=== PATIENT | male | born 1975 | race Two or more races ===

== ENCOUNTER 2016-07-05 09:58 | Emergency (ER) | payer OTHER ==
[2016-07-05 10:02] VITALS: BP 155/90; PULSE 84; TEMP 97.9; BMI 31.3
[2016-07-05 10:27] LABS: URINE APPEARANCE SLCLOUDY; URINE BILIRUBIN NEGATIVE (NEGATIVE); URINE COLOR STRAW; URINE GLUCOSE (UA) NEGATIVE (NEGATIVE); URINE KETONE NEGATIVE (NEGATIVE); URINE LEUK ESTERASE NEGATIVE (NEGATIVE); URINE NITRITE NEGATIVE (NEGATIVE); URINE PROTEIN NEGATIVE (NEGATIVE); URINE UROBILINOGEN NEGATIVE E.U./dl (0.2-1.0)
[2016-07-05 10:39] LABS: URINE BLOOD 3+ (NEGATIVE)
[2016-07-05 10:55] LABS: URINE RBC 2260 /hpf (0-3)
--- NOTE | 2016-07-05 11:11 | PDOC ---
History of Present Illness - General Chief Complaint: Urinary Problem Stated Complaint: BLOOD IN URINE Time Seen by Provider: 07/05/16 10:31 History Source: Patient Exam Limitations: No Limitations - History of Present Illness Travel History: No Initial Comments: 07/05/16 11:06 40 yr male with c/o blood in urine for one week. Pt has no urgency or frequency no burning. Pt has history of HTN, has seen his PMD in the past one month ago for same. PMD . Timing/Duration: reports: intermittent (for 2 months on and off) Abdominal Pain Onset Location: denies: RUQ, LUQ, RLQ, LLQ, epigastric, periumbilical, suprapubic, generalized abdomen, flank, unknown, other Pain Radiation: reports: no radiation Activities at Onset: reports: none Past History - Past Medical History Allergies/Adverse Reactions: Allergies Allergy/AdvReac Type Severity Reaction Status Date / Time No Known Allergies Allergy Verified 07/05/16 10:02 Home Medications: Ambulatory Orders Amlodipine Bes/Olmesartan Med [Rachel 10-20 mg Tablet] 1 each PO DAILY 05/09/14 Hydrochlorothiazide [Hctz -] 12.5 mg PO DAILY 05/09/14 HTN: Yes Suicide Attempt (Hx): No - Immunization History Immunization Up to Date: No - Psycho/Social/Smoking Cessation Hx Anxiety: No Suicidal Ideation: No Smoking Status: No Smoking History: Never smoked Have you smoked in the past 12 months: No Number of Cigarettes Smoked Daily: 0 Information on smoking cessation initiated: No Hx Alcohol Use: No Drug/Substance Use Hx: No Substance Use Type: None Abd/GI Specific PMHX - Complaint Specific PMHX Colitis: No Diverticulitis: No Gall Bladder Disease: No GERD: No Hepatitis: No Irritable Bowel Synd (IBS): No Pancreatitis: No GI Ulcer Disease: No Review of Systems - Review of Systems Able to Perform ROS?: Yes Is the patient limited Bengali proficient: No Constitutional: No: Symptoms Reported HEENTM: No: Symptoms Reported Respiratory: No: Symptoms reported Cardiac (ROS): No: Symptoms Reported ABD/GI: No: Symptoms Reported : Yes: Symptoms Reported Musculoskeletal: No: See HPI Integumentary: No: Symptoms Reported Neurological: No: Symptoms reported *Physical Exam - Vital Signs Last Vital Signs Temp Pulse Resp BP Pulse Ox 97.9 F 84 18 155/90 97 07/05/16 10:00 07/05/16 10:00 07/05/16 10:00 07/05/16 10:00 07/05/16 10:00 - Physical Exam General Appearance: Yes: Nourished, Appropriately Dressed HEENT: positive: EOMI, RICH, Normal ENT Inspection, TMs Normal, Pharynx Normal Neck: positive: Supple. negative: Tender Respiratory/Chest: positive: Lungs Clear, Normal Breath Sounds Cardiovascular: positive: Regular Rhythm, Regular Rate Gastrointestinal/Abdominal: positive: Normal Bowel Sounds, Soft. negative: Tender Male Genitalia: positive: normal genitalia Musculoskeletal: positive: CVA Tenderness (L) Extremity: positive: Normal Capillary Refill, Normal Inspection, Normal Range of Motion Integumentary: positive: Normal Color, Dry, Warm Neurologic: positive: Fully Oriented, Alert, Normal Mood/Affect, Normal Response , Motor Strength 06/15 ED Treatment Course - LABORATORY CBC & Chemistry Diagram: 07/05/16 11:04 07/05/16 11:04 - ADDITIONAL ORDERS Additional order review: Laboratory Results 07/05/16 10:18 Urine Color Straw Urine Appearance Slcloudy Urine pH 7.0 Urine Protein Negative Urine Glucose (UA) Negative Urine Ketones Negative Urine Blood 3+ H Urine Nitrite Negative Urine Bilirubin Negative Urine Urobilinogen Negative Ur Leukocyte Esterase Negative - RADIOLOGY Radiology Studies Ordered: Category Date Time Status KIDNEY / RENAL US [US] Stat Ultrasound 07/05/16 11:04 Ordered Medical Decision Making - Medical Decision Making 07/05/16 11:09 cc: hematuria for one week states he had this in the past was told to drink pleanty of water. pt has no abd pain no back pain no urinary urgency or frequency no penile discharge 07/05/16 12:46 07/05/16 15:15 I have given the dc instructions verbally to the patient to follow with urology and his PMD next week that the continuation of the workup must be completed by the urologist or PMD to r/o other etiologies. Pt understands the importance of this continued care. all questions asked and answered at discharge. pt has been given a copy of the labs and ultrasound. *DC/Admit/Observation/Transfer Diagnosis at time of Disposition: Hematuria - Discharge Dispostion Disposition: HOME Condition at time of disposition: Good - Referrals Referrals: Oscar Schmidt MD [Primary Care Provider] - Abilio Casillas MD [Staff Physician] - - Patient Instructions Additional Instructions: follow with the urologist , please call today to set up appointment for the next week , if you are unable to see him PLEASE see your primary care doctor to discuss the results bring copies of the labs and the ultrasound report with you return to ER if any worsening symptoms
[2016-07-05 11:46] LABS: MCH 30.9 pg (25.7-33.7); MCHC 34.8 g/dl (32.0-35.9); MEAN CELL VOLUME 88.7 fl (80-96); MEAN PLT VOLUME 9.2 fl (7.5-11.1); PLATELET COUNT 279 K/MM3 (134-434); RDW 12.7 % (11.9-15.9); WHITE BLOOD COUNT 9.4 K/mm3 (4.0-10.0)
[2016-07-05 11:54] LABS: ALBUMIN 3.8 g/dl (3.4-5.0); ALK PHOS 101 U/L (45-117); ANION GAP 10 (8-16); BILIRUBIN,TOTAL 0.5 mg/dL (0.2-1.0); CALCIUM 8.8 mg/dL (8.5-10.1); CO2 27 mmol/L (21-32); COCKROFT - GAULT 137.19; CREATININE 0.9 mg/dL (0.7-1.3); GLUCOSE,RANDOM 84 mg/dL (74-106); SGPT/ALT 55 U/L (12-78); TOT PROT 7.5 g/dl (6.4-8.2)
[2016-07-05 11:58] LABS: SGOT/AST 47 U/L (15-37)
== END 2016-07-05 14:03 | disposition home or self-care (01) ==
LOC: JERFT 09:58
DX: R31.9 Hematuria, unspecified (principal); I10 Essential (primary) hypertension
CPT/HCPCS: 36415; 76775-TC; 80053; 81003; 81015; 85027; 87086; 99281-25

== ENCOUNTER 2016-07-09 07:31 | Emergency (ER) | payer OTHER ==
[2016-07-09 07:37] VITALS: BMI 31.3
[2016-07-09] MEDS ORDERED: SODIUM CHLORIDE 1,000 ML IV STA (07:53)
[2016-07-09] MEDS ORDERED: KETOROLAC TROMETHAMINE 30 MG/1 ML VIAL IVPUSH ONE (07:54)
--- NOTE | 2016-07-09 08:26 | PDOC ---
History of Present Illness - General Chief Complaint: Pain Stated Complaint: SIDE PAIN Time Seen by Provider: 07/09/16 07:46 History Source: Patient Exam Limitations: No Limitations - History of Present Illness Initial Comments: 07/09/16 08:12 This pt is a 40 yo M with a history of HTN who presents to the ER with a complaint of left flank pain Pt states that he was seen in the ER 4 days ago due to hematuria At that time, pt denied pain He was discharged to home, no abx or pain medications Pt states he began having severe flank pain No fevers or chills Pain is described as crampy, 9/10, located in the left flank, no pain in the abdomen No alleviating factors PMH: HTN PSH: Right wrist surgery, Right thumb surgery Meds: Amlodipine 10mg daily, HCTZ 12.5 ALL: NKDA Social: denies alcohol, drugs cigarettes GENERAL/CONSTITUTIONAL: No: fever, chills, weakness, loss of appetite. GASTROINTESTINAL: No: nausea, vomiting, diarrhea, abdominal pain GENITOURINARY: Yes: left flank pain No: dysuria, hematuria, frequency, urgency MUSCULOSKELETAL: No: back pain, neck pain, joint pain, muscle swelling or pain SKIN: No: lesions, pallor, rash or easy bruising. NEUROLOGIC: No: headache, vertigo, paresthesias, weakness ENDOCRINE: No: unexplained weight gain or loss HEMATOLOGIC/LYMPHATIC: No: anemia, easy bleeding, swelling nodes. GENERAL: The patient is in no acute distress. HEAD: Normal with no signs of trauma. EYES: PERRLA, EOMI, sclera anicteric, conjunctiva clear. ENT: Ears normal, nares patent, oropharynx clear without exudates. Moist mucous membranes. NECK: Normal range of motion, supple without lymphadenopathy, JVD, or masses. LUNGS: Breath sounds equal, clear to auscultation bilaterally. No wheezes, and no crackles. HEART: Regular rate and rhythm, normal S1 and S2 without murmur, rub or gallop. ABDOMEN: (+) Left CVA tenderness, Abdomen Soft, nontender, normoactive bowel sounds. No guarding, no rebound. EXTREMITIES: Normal range of motion, no edema. No clubbing or cyanosis. No erythema, or tenderness. NEUROLOGICAL: Cranial nerves II through XII grossly intact. Normal speech. No focal neurological deficits. MUSCULOSKELETAL: Back non-tender to palpation, no CVA tenderness SKIN: Warm, Dry, normal turgor, no rashes or lesions noted. Past History - Past Medical History Allergies/Adverse Reactions: Allergies Allergy/AdvReac Type Severity Reaction Status Date / Time No Known Allergies Allergy Verified 07/09/16 07:34 Home Medications: Ambulatory Orders Hydrochlorothiazide [Hctz -] 12.5 mg PO DAILY 05/09/14 Amlodipine Besylate [Norvasc -] 10 mg PO DAILY 07/09/16 Naproxen [Naprosyn -] 500 mg PO BID PRN #14 tablet 07/09/16 Oxycodone HCl/Acetaminophen [Percocet 5-325 mg Tablet -] 1 tab PO Q6H PRN #12 tablet MDD 4 07/09/16 Tamsulosin HCl [Flomax] 0.4 mg PO HS #10 capsule 07/09/16 HTN: Yes Kidney Stones: Yes Suicide Attempt (Hx): No - Immunization History Immunization Up to Date: No - Psycho/Social/Smoking Cessation Hx Anxiety: No Suicidal Ideation: No Smoking Status: No Smoking History: Never smoked Have you smoked in the past 12 months: No Number of Cigarettes Smoked Daily: 0 Information on smoking cessation initiated: No Hx Alcohol Use: No Drug/Substance Use Hx: No Substance Use Type: None *Physical Exam - Vital Signs Last Vital Signs Temp Pulse Resp BP Pulse Ox 97.9 F 69 18 129/72 100 07/09/16 07:34 07/09/16 07:34 07/09/16 07:34 07/09/16 07:34 07/09/16 07:34 ED Treatment Course - LABORATORY CBC & Chemistry Diagram: 07/09/16 08:30 07/09/16 08:30 Medical Decision Making - Medical Decision Making 07/09/16 08:26 will do labs Will give Toradol will give IVF Will do CT Will re assess 07/09/16 10:28 Laboratory Tests 07/05/16 07/05/16 07/09/16 11:04 11:04 08:30 Hgb 15.8 15.2 Hct 45.3 44.6 BUN 19 H Creatinine 0.9 D Urine RBC Urine WBC 07/09/16 07/09/16 08:30 09:50 Hgb Hct BUN 16 Creatinine 1.2 D Urine RBC 62 Urine WBC 1 07/09/16 11:00 Laboratory Tests 04/15/12 08/30/12 05/09/14 10:50 08:45 20:30 Creatinine 1.5 H D 1.1 D 1.4 H D 07/05/16 07/09/16 11:04 08:30 Creatinine 0.[address]: 4-5 mm UVJ stone 07/09/16 11:54 Pt states pain is controlled Will discharge to home Pt asked to follow up with Urology Return to the ER for increased pain, fevers, any other concerns or complaint Clinical impression: kidney stone 07/10/16 20:47 *DC/Admit/Observation/Transfer Diagnosis at time of Disposition: Kidney stone - Discharge Dispostion Disposition: HOME Condition at time of disposition: Stable Admit: No - Prescriptions Prescriptions: Tamsulosin HCl [Flomax] 0.4 mg PO HS #10 capsule Naproxen [Naprosyn -] 500 mg PO BID PRN #14 tablet PRN Reason: Pain Oxycodone HCl/Acetaminophen [Percocet 5-325 mg Tablet -] 1 tab PO Q6H PRN #12 tablet MDD 4 PRN Reason: Severe Pain - Referrals Referrals: Oscar Schmidt MD [Primary Care Provider] - - Patient Instructions Printed Discharge Instructions: DI for Kidney Stones Additional Instructions: Mr. Garcia Thank you for coming back to the ER Please return to the ER for increased pain, inability to tolerate foods, liquids or medicines Please monitor yourself for fevers or chills you must follow up with the Urologist within 2-3 days you can also follow up with your primary care physician within 1 week - Post Discharge Activity Work/School Note: Back to Work
[2016-07-09] MEDS ORDERED: KETOROLAC TROMETHAMINE 30 MG/1 ML VIAL ONE (08:28)
[2016-07-09 09:07] LABS: CALCIUM 8.5 mg/dL (8.5-10.1); COCKROFT - GAULT 102.89; CREATININE 1.2 mg/dL (0.7-1.3)
[2016-07-09 09:17] LABS: BASOPHIL 0.6 % (0-2.0); EOSINOPHIL 0.6 % (0-4.5); MCH 30.3 pg (25.7-33.7); MCHC 34.2 g/dl (32.0-35.9); MEAN CELL VOLUME 88.6 fl (80-96); MEAN PLT VOLUME 8.9 fl (7.5-11.1); NEUTROPHILS 77.3 % (42.8-82.8); PLATELET COUNT 242 K/MM3 (134-434); RDW 12.6 % (11.9-15.9); WHITE BLOOD COUNT 8.9 K/mm3 (4.0-10.0)
[2016-07-09 10:09] LABS: URINE APPEARANCE CLOUDY; URINE BILIRUBIN NEGATIVE (NEGATIVE); URINE BLOOD 2+ (NEGATIVE); URINE COLOR LTYELLOW; URINE GLUCOSE (UA) 1+ (NEGATIVE); URINE KETONE NEGATIVE (NEGATIVE); URINE LEUK ESTERASE NEGATIVE (NEGATIVE); URINE NITRITE NEGATIVE (NEGATIVE); URINE PROTEIN NEGATIVE (NEGATIVE); URINE UROBILINOGEN NEGATIVE E.U./dl (0.2-1.0)
[2016-07-09 10:14] LABS: URINE RBC 62 /hpf (0-3); URINE WBC 1 /hpf (3-5)
[2016-07-09 11:57] VITALS: BP 146/88; PULSE 62; TEMP 97.5
== END 2016-07-09 12:07 | disposition home or self-care (01) ==
LOC: JER 07:31
PROC: 3E0333Z Introduction of Anti-inflammatory into Peripheral Vein, Percutaneous Approach (ICD-10-PCS; principal; 2016-07-09)
PROC: 3E0337Z Introduction of Electrolytic and Water Balance Substance into Peripheral Vein, Percutaneous Approach (ICD-10-PCS; 2016-07-09)
DX: N23 Unspecified renal colic (principal); Z87.442 Personal history of urinary calculi; I10 Essential (primary) hypertension
CPT/HCPCS: 36415; 74176; 80048; 81003; 81015; 85025; 87086; 96361; 96374; 99282-25

== ENCOUNTER 2017-06-05 09:09 | Emergency (ER) | payer OTHER ==
[2017-06-05 09:28] VITALS: BP 160/90; PULSE 66; TEMP 98.1; BMI 31.3
[2017-06-05] MEDS ORDERED: KETOROLAC TROMETHAMINE 60 MG/2 ML VIAL IM ONE (10:06)
[2017-06-05] MEDS ORDERED: KETOROLAC TROMETHAMINE 60 MG/2 ML VIAL ONE (10:09)
--- NOTE | 2017-06-05 10:24 | PDOC ---
History of Present Illness - General Chief Complaint: Pain, Acute Stated Complaint: PAIN/ RT SIDE, HIP, ARM Time Seen by Provider: 06/05/17 09:25 History Source: Patient Exam Limitations: No Limitations - History of Present Illness Initial Comments: 06/05/17 10:22 CHIEF COMPLAINT: Right lateral lower back pain, radiating down right leg and right elbow pain HISTORY OF PRESENT ILLNESS patient is a 41-year-old male history of hypertension and chronic back pain presents with right lateral lower back pain radiating down right leg for several weeks has not attempted to take any medication, lifts heavy things and regular basis. Also complaining of right posterior lateral elbow pain. There is a healing bruise noted to area with localized swelling. Does not remember direct trauma however states he could've hit it during work., Denies any neurosensory deficits, no bowel or bladder difficulty incontinence or urinary retention, no saddle anesthesia, no footdrop. No history of IVDU or history of cancer. REVIEW OF SYSTEMS: GENERAL: Afebrile, denies any weakness RESPIRATORY: No cough, wheezing, or hemoptysis. CARDIAC: No chest pain or shortness of breath MUSCULOSKELETAL: Pain to generalized lower back. No point tenderness. Pain worse on right than left. SKIN : No erythema, no bruising, no deformity. GI/: Denies any abdominal pain, no urinary difficulty, incontinence or urinary retention. RECTAL: Denies any difficulty this A.m. NEUROLOGICAL: Denies any numbness or tingling. No neurosensory deficits. PHYSICAL EXAM: GENERAL: The patient is awake, alert, and fully oriented, in no acute distress. RESPIRATORY: Lungs clear bilaterally, no rhonchi wheezes or crackles CARDIAC: S1-S2 audible, no murmur rub or gallop MUSCULOSKELETAL: Pain to generalized lower back, radiating down right lateral leg . Pain over SI. No tingling or sensory deficit. Less than 2 second cap refill, +4 popliteal and pedal pulses. Pain to right lateral posterior elbow with swelling and healing bruise. GI/: Abdomen soft, nontender, nondistended. No rebound tenderness. No masses palpable. MUSCULOSKELETAL: No spinal point tenderness. Normal reflexive and no deficits to sensation or strength. RECTAL: Deferred patient with no neurological findings SKIN: Warm, Dry, normal turgor, no erythema, no edema no bruising. Past History - Past Medical History Allergies/Adverse Reactions: Allergies Allergy/AdvReac Type Severity Reaction Status Date / Time No Known Allergies Allergy Verified 06/05/17 09:24 Home Medications: Ambulatory Orders Hydrochlorothiazide [Hctz -] 12.5 mg PO DAILY 05/09/14 Amlodipine Besylate [Norvasc -] 10 mg PO DAILY 07/09/16 Cyclobenzaprine HCl [Flexeril 10 mg] 10 mg PO BID PRN #20 tablet 06/05/17 COPD: No HTN: Yes Kidney Stones: Yes - Immunization History Immunization Up to Date: No - Suicide/Smoking/Psychosocial Hx Smoking Status: No Smoking History: Never smoked Have you smoked in the past 12 months: No Number of Cigarettes Smoked Daily: 0 Information on smoking cessation initiated: No Hx Alcohol Use: No Drug/Substance Use Hx: No Substance Use Type: None *Physical Exam - Vital Signs Last Vital Signs Temp Pulse Resp BP Pulse Ox 98.1 F 66 17 160/90 97 06/05/17 09:24 06/05/17 09:24 06/05/17 09:24 06/05/17 09:24 06/05/17 09:24 ED Treatment Course - RADIOLOGY Radiology Studies Ordered: Category Date Time Status ELBOW-RIGHT [RAD] Stat Radiology 06/05/17 10:06 Ordered - Medications Given in the ED: ED Medications Discontinued Medications Generic Name Dose Route Start Last Admin Trade Name Freq PRN Reason Stop Dose Admin Ketorolac Tromethamine 60 mg 06/05/17 10:06 06/05/17 10:12 Toradol Injection - IM 06/05/17 10:07 60 mg ONCE ONE Administration Medical Decision Making - Medical Decision Making 06/05/17 10:24 A/P: Patient with clinical signs of sciatica, given Toradol 60 mg IM, patient also with right elbow pain sent to x-ray. 06/05/17 12:15 A/P: Patient feels better after the Toradol injection, exudate elbow is negative for acute fracture dislocation or effusion. I will DC patient home on Medrol Dosepak, Flexeril at night, follow-up with orthopedics as needed for pain. *DC/Admit/Observation/Transfer Diagnosis at time of Disposition: Sciatic pain Qualifiers: Laterality: right Qualified Code(s): M54.31 - Sciatica, right side Elbow pain Qualifiers: Laterality: right Qualified Code(s): M25.521 - Pain in right elbow - Discharge Dispostion Disposition: HOME Condition at time of disposition: Stable Admit: No - Prescriptions Prescriptions: Cyclobenzaprine HCl [Flexeril 10 mg] 10 mg PO BID PRN #20 tablet PRN Reason: Pain - Referrals Referrals: Oscar Schmidt MD [Primary Care Provider] - Reynaldo Middleton MD [Staff Physician] - - Patient Instructions Printed Discharge Instructions: DI for Sciatica Additional Instructions: 1. Please return to the emergency department with any numbness, tingling, weakness, numbness or tingling to groin or legs, or loss of bowel or bladder function. 2. Use pain medication as ordered. 3. Please is to followup in the office of Dr. Middleton for evaluation within a week if no improvement. 4. Ice or heat 5. Refrain from lifting anything above 10 pounds, until pain resolved. - Post Discharge Activity Forms/Work/School Notes: Back to Work
== END 2017-06-05 12:25 | disposition home or self-care (01) ==
LOC: JERFT 09:09
PROC: 3E0233Z Introduction of Anti-inflammatory into Muscle, Percutaneous Approach (ICD-10-PCS; principal; 2017-06-05)
DX: M54.31 Sciatica, right side (principal); M25.521 Pain in right elbow
CPT/HCPCS: 73070-TC-RT-FY; 99281-25

== ENCOUNTER 2017-08-03 09:27 | Emergency (ER) | payer SELFPAY ==
[2017-08-03 09:38] VITALS: BP 151/90; PULSE 70; TEMP 97.9; BMI 31.1
[2017-08-03] MEDS ORDERED: FLUORESCEIN NA 1 EA STRIP ONE (09:49)
--- NOTE | 2017-08-03 09:50 | PDOC ---
History of Present Illness - General Chief Complaint: Eye Problem Stated Complaint: Eye Problem Time Seen by Provider: 08/03/17 09:41 History Source: Patient Exam Limitations: No Limitations - History of Present Illness Initial Comments: 08/03/17 09:50 Patient came for evaluation of right eye pain 1 week. 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 States used eye wash but feels has continued abrasion and possible foreign body. Denies fever, drainage, visual acuity is relatively unchanged. Used Visine once or twice with no resolve. Severity: mild Modifying Factors: improves with: medication Associated Symptoms: reports: denies symptoms Past History - Travel Traveled outside of the country in the last 30 days: No Close contact w/someone who was outside of country & ill: No - Past Medical History Allergies/Adverse Reactions: Allergies Allergy/AdvReac Type Severity Reaction Status Date / Time No Known Allergies Allergy Verified 06/05/17 09:24 Home Medications: Ambulatory Orders Hydrochlorothiazide [Hctz -] 12.5 mg PO DAILY 05/09/14 Amlodipine Besylate [Norvasc -] 10 mg PO DAILY 07/09/16 Erythromycin 0.5% Eye Ointment [Erythromycin 0.5% Eye Ointment -] 1 applic OD TID #1 tube 08/03/17 COPD: No HTN: Yes Kidney Stones: Yes - Immunization History Immunization Up to Date: No - Suicide/Smoking/Psychosocial Hx Smoking Status: No Smoking History: Never smoked Have you smoked in the past 12 months: No Number of Cigarettes Smoked Daily: 0 Hx Alcohol Use: No Drug/Substance Use Hx: No Substance Use Type: None Review of Systems - Review of Systems Able to Perform ROS?: Yes Is the patient limited Latvian proficient: Yes Constitutional: Yes: Symptoms Reported, See HPI, Fever, Malaise HEENTM: Yes: Symptoms Reported, See HPI, Eye Pain, Blurred Vision, Tearing. No : Double Vision, Ear Pain, Nose Congestion Respiratory: Yes: See HPI, Cough. No: Symptoms reported Cardiac (ROS): No: Symptoms Reported All Other Systems: Reviewed and Negative *Physical Exam - Vital Signs Last Vital Signs Temp Pulse Resp BP Pulse Ox 97.9 F 70 17 151/90 97 08/03/17 09:35 08/03/17 09:35 08/03/17 09:35 08/03/17 09:35 08/03/17 09:35 - Physical Exam General Appearance: Yes: Nourished, Appropriately Dressed, Apparent Distress HEENT: positive: RICH, Normal ENT Inspection, TMs Normal, Pharynx Normal, Other (right eye is injected, with fluorescein uptake at 7:00 lateral to Iris without noted foreign body, or defect to cornea except for uptake. Visual acuity 20/40 in affected eye, no obvious foreign body, however has some mild edema to conjunctiva. Negative EOM) Neck: positive: Supple. negative: Tender, Lymphadenopathy (R), Lymphadenopathy (L) Respiratory/Chest: positive: Lungs Clear Gastrointestinal/Abdominal: positive: Soft Musculoskeletal: positive: Normal Inspection Extremity: positive: Normal Capillary Refill, Normal Inspection, Normal Range of Motion Integumentary: positive: Dry, Warm, Pale Neurologic: positive: plate glass installer II-XII NML intact, Fully Oriented, Alert, Normal Mood/ Affect, Normal Response, Motor Strength 5/5 Medical Decision Making - Medical Decision Making 08/03/17 13:43 Corneal abrasion/ulceration. Treated with erythromycin ointment and recommended follow-up with seal delivery vehicle officer on Saturday as patient has instituted a appointment with Dr. Ratliff *DC/Admit/Observation/Transfer Diagnosis at time of Disposition: Corneal abrasion, right Qualifiers: Encounter type: initial encounter Qualified Code(s): S05.01XA - Injury of conjunctiva and corneal abrasion without foreign body, right eye, initial encounter - Discharge Dispostion Disposition: HOME Condition at time of disposition: Stable Decision to Admit order: No - Prescriptions Prescriptions: Erythromycin 0.5% Eye Ointment [Erythromycin 0.5% Eye Ointment -] 1 applic OD TID #1 tube - Referrals Referrals: Oscar Schmidt MD [Primary Care Provider] - Abhishek Ratliff MD [Staff Physician] - - Patient Instructions Printed Discharge Instructions: DI for Corneal Abrasion Additional Instructions: Rest, avoid rubbing eyes Wash hands frequently Return ice and ointment, one application 3 times a day to affected eye for 5 days Avoid contact with others until redness and discharge is gone from eyes. Followup with ophthalmology or private physician as needed - Post Discharge Activity Forms/Work/School Notes: Back to Work
[2017-08-03] MEDS ORDERED: FLUORESCEIN NA 1 EA STRIP OD ONE (10:04)
[2017-08-03] MEDS ORDERED: ERYTHROMYCIN 0.5% OPHTHALMIC OINTMENT 3.5 GM TUBE OS ONE (10:05)
[2017-08-03] MEDS ORDERED: ERYTHROMYCIN 0.5% OPHTHALMIC OINTMENT 3.5 GM TUBE ONE (10:06)
[2017-08-03] MEDS ORDERED: DIPHTH,PERTUSS(ACELL),TET 0.5 ML DISP.SYRIN IM ONE (10:08)
== END 2017-08-03 10:33 | disposition home or self-care (01) ==
LOC: JERFT 09:27
PROC: 3E0234Z Introduction of Serum, Toxoid and Vaccine into Muscle, Percutaneous Approach (ICD-10-PCS; principal; 2017-08-03)
DX: S05.01XA Injury of conjunctiva and corneal abrasion without foreign body, right eye, initial encounter (principal); I10 Essential (primary) hypertension; Z87.442 Personal history of urinary calculi
CPT/HCPCS: 90715; 99281-25

== ENCOUNTER 2018-01-16 19:34 | Emergency (ER) | payer SELFPAY ==
--- NOTE | 2018-01-16 19:45 | PDOC ---
Rapid Medical Evaluation Time Seen by Provider: 01/16/18 19:42 Medical Evaluation: Allergies Allergy/AdvReac Type Severity Reaction Status Date / Time No Known Allergies Allergy Verified 06/05/17 09:24 I have performed a brief in-person evaluation of this patient. The patient presents with a chief complaint of: blood pressure is high. hasn' t taken his BP meds for 1 month because he doesnt' have insurance. take amlodipine and HCTZ normally Pertinent physical exam findings: 225/124 I have ordered the following: nothing The patient will proceed to the ED for further evaluation. Discharge Disposition - Diagnosis High blood pressure - Referrals - Patient Instructions - Post Discharge Activity
[2018-01-16 19:46] VITALS: TEMP 98.7; BMI 32.1
[2018-01-16] MEDS ORDERED: amLODIPine BESYLATE 2.5 MG TABLET (FP) PO ONE ×2 (20:00→20:31)
[2018-01-16] MEDS ORDERED: HYDROCHLOROTHIAZIDE 12.5 MG CAPSULE (FP) PO ONE ×2 (20:01→20:31)
[2018-01-16] MEDS ORDERED: HYDROCHLOROTHIAZIDE 25 MG TABLET (FP) ONE ×2 (20:06→20:41)
[2018-01-16] MEDS ORDERED: amLODIPine BESYLATE 5 MG TABLET (FP) ONE ×2 (20:06→20:41)
[2018-01-16 20:35] LABS: BASO % 1.2 % (0-2.0); EOS % 1.5 % (0-4.5); HEMATOCRIT 42.4 % (35.4-49); HEMOGLOBIN 15.2 GM/dL (11.7-16.9); LYMPH % 34.9 % (8-40); MCH 31.1 pg (25.7-33.7); MCHC 35.9 g/dl (32.0-35.9); MEAN CELL VOLUME 86.5 fl (80-96); MEAN PLT VOLUME 9.4 fl (7.5-11.1); MONO % 8.3 % (3.8-10.2); NEUT % 54.1 % (42.8-82.8); PLATELET COUNT 249 K/MM3 (134-434); WHITE BLOOD COUNT 9.8 K/mm3 (4.0-10.0)
[2018-01-16 21:03] LABS: ALBUMIN 3.9 g/dl (3.4-5.0); ALK PHOS 102 U/L (45-117); ANION GAP 9 MMOL/L (8-16); BILIRUBIN,TOTAL 0.5 mg/dL (0.2-1); BLOOD UREA NITROGEN 17 mg/dL (7-18); CALCIUM 8.2 mg/dL (8.5-10.1); CHLORIDE 102 mmol/L (98-107); CO2 28 mmol/L (21-32); CREATININE 1.4 mg/dL (0.55-1.3); GLUCOSE,RANDOM 83 mg/dL (74-106); POTASSIUM 3.4 mmol/L (3.5-5.1); SGOT/AST 24 U/L (15-37); SGPT/ALT 29 U/L (13-61); SODIUM 139 mmol/L (136-145); TOT PROT 7.4 g/dl (6.4-8.2)
--- NOTE | 2018-01-16 21:19 | PDOC ---
Attending Attestation - Resident Resident Name: [email or web address] - ED Attending Attestation I have performed the following: I have examined & evaluated the patient, The case was reviewed & discussed with the resident, I agree w/resident's findings & plan - HPI HPI: 01/16/18 21:17 42-year-old male history of hypertension well controlled but off meds for 1 month secondary to loss of insurance presents now with elevated blood pressures at home in the setting of slight lightheadedness. No other symptoms of end organ injury, measured it blood pressure and presents for evaluation. Denies any exertional chest pain or dyspnea, no headache/vision change/speech change/ focal weakness/nausea/vomiting. - Physicial Exam PE: 01/16/18 21:18 Elevated blood pressures as noted, now 199/110 after initial round of medications Well-appearing, well-developed, no acute distress. Seated comfortably in stretcher smiling. Pupils equal round reactive to light, extraocular movements are intact No audible carotid bruit Heart is regular without murmur, lungs are clear, abdomen benign without palpable masses Neurologically intact - Medical Decision Making 01/16/18 21:18 42-year-old male with elevated blood pressure in the setting of medication noncompliance for 1 month, no red flags on history or physical exam, well- appearing here but with elevated blood pressures. Labs sent rule out end organ injury No evidence of cardiopulmonary or neurological compromise Dose medications, will attempt to obtain prescription for 1 month before he can follow-up with his primary physician, Dr. Schmidt, again. 01/16/18 22:15 Blood pressure improves, remains asymptomatic. Baseline creatinine of 1.4, no other abnormalities Agrees with discharge plan on antihypertensives, follow-up with Dr. Schmidt, understands return criteria. Heart Score/ECG Review #1 ECG reviewed & interpreted by me at: 22:06 General ECG Interpretation: Sinus Rhythm, Normal Rate (61), Normal Intervals ( qtc 396), No acute ischemic changes (isolated Q III)
--- NOTE | 2018-01-16 22:05 | PDOC ---
History of Present Illness - General Chief Complaint: Blood Pressure Problem Stated Complaint: BLOOD PRESSURE PROBLEM Time Seen by Provider: 01/16/18 19:42 History Source: Patient Exam Limitations: No Limitations - History of Present Illness Initial Comments: 01/16/18 22:17 The patient is a 42M with a PMH of HTN who presents to the ER with complaints of elevated BP. The patient states that he ran out of his meds 1 month ago and has not refilled it due to insurance issues. He states that for the past month, he has had intermittent lightheadedness without CP, SOB, changes in vision, palpitations, nausea, vomiting, numbness, tingling, and weakness. He denies any acute symptoms presently. Past History - Past Medical History Allergies/Adverse Reactions: Allergies Allergy/AdvReac Type Severity Reaction Status Date / Time No Known Allergies Allergy Verified 01/16/18 19:47 Home Medications: Ambulatory Orders Hydrochlorothiazide [Hctz -] 12.5 mg PO DAILY 05/09/14 Amlodipine Besylate [Norvasc -] 10 mg PO DAILY 07/09/16 Amlodipine Besylate [Norvasc -] 5 mg PO DAILY #30 tablet 01/16/18 Hydrochlorothiazide [Hctz -] 12.5 mg PO DAILY #30 cap 01/16/18 COPD: No HTN: Yes Kidney Stones: Yes - Immunization History Immunization Up to Date: No - Suicide/Smoking/Psychosocial Hx Smoking Status: No Smoking History: Never smoked Have you smoked in the past 12 months: No Number of Cigarettes Smoked Daily: 0 Hx Alcohol Use: No Drug/Substance Use Hx: No Substance Use Type: None Review of Systems - Review of Systems Able to Perform ROS?: Yes Comments:: 01/16/18 22:18 GENERAL/CONSTITUTIONAL: Positive for elevated BP. No fever or chills. No weakness. HEAD, EYES, EARS, NOSE AND THROAT: No change in vision. No ear pain or discharge. No sore throat. CARDIOVASCULAR: Positive for lightheadedness. No chest pain or palpitations. RESPIRATORY: No cough, wheezing, shortness of breath, or hemoptysis. GASTROINTESTINAL: No nausea, vomiting, diarrhea, constipation, or abdominal pain. GENITOURINARY: No dysuria, frequency, hematuria, or change in urination. MUSCULOSKELETAL: No joint or muscle swelling or pain. No neck or back pain. SKIN: No rash or lesions. NEUROLOGIC: No headache, numbness, tingling, focal weakness, loss of consciousness, or change in strength/sensation. ENDOCRINE: No increased thirst. No abnormal weight change. HEMATOLOGIC/LYMPHATIC: No anemia, easy bleeding, or history of blood clots. ALLERGIC/IMMUNOLOGIC: No hives or skin allergy. Is the patient limited [place] proficient: No *Physical Exam - Vital Signs Last Vital Signs Temp Pulse Resp BP Pulse Ox 98.7 F 66 18 225/124 H 98 01/16/18 19:43 01/16/18 19:43 01/16/18 19:43 01/16/18 19:43 01/16/18 19:43 - Physical Exam Comments: 01/16/18 22:19 GENERAL: Well developed, well nourished. Awake and alert. No acute distress. HEENT: Normocephalic, atraumatic. Hearing grossly normal. Moist mucous membranes. PERRLA, EOMI. No conjunctival pallor. Sclera are non-icteric. Oropharynx is clear. NECK: Supple. Full ROM. No JVD. CARDIOVASCULAR: Regular rate and rhythm. No murmurs, rubs, or gallops. PULMONARY: No evidence of respiratory distress. Lungs clear to auscultation bilaterally. No wheezing, rales or rhonchi. ABDOMINAL: Soft. Non-tender. Non-distended. No rebound or guarding. GENITOURINARY: No CVA tenderness bilaterally. MUSCULOSKELETAL: Normal range of motion at all joints. No bony deformities or tenderness. EXTREMITIES: No cyanosis. No clubbing. No edema. No calf tenderness or swelling. SKIN: Warm and dry. Normal capillary refill. No rashes. No jaundice. NEUROLOGICAL: Alert, awake, appropriate. Cranial nerves 2-12 grossly intact. Normal speech. Gait is normal without ataxia. PSYCHIATRIC: Cooperative. Good eye contact. Appropriate mood and affect. Moderate Sedation - Procedure Monitoring Vital Signs: Procedure Monitoring Vital Signs Temperature 98.7 F 01/16/18 19:43 Pulse Rate 66 01/16/18 19:43 Respiratory Rate 18 01/16/18 19:43 Blood Pressure 225/124 H 01/16/18 19:43 O2 Sat by Pulse Oximetry (%) 98 01/16/18 19:43 Heart Score/ECG Review #1 General ECG Interpretation: Sinus Rhythm, Normal Rate, Normal Intervals, No acute ischemic changes Compared to previous ECG there are: Previous ECG unavail (Only report available. ) 01/16/18 22:24 NSR vent rate 60 OR 204 QRS 106 QTc 396 No STD or ADENIKE No signs of acute ischemia ED Treatment Course - LABORATORY CBC & Chemistry Diagram: 01/16/18 20:10 01/16/18 20:10 - ADDITIONAL ORDERS Additional order review: Laboratory Results 01/16/18 20:10 Sodium 139 Potassium 3.4 L Chloride 102 Carbon Dioxide 28 Anion Gap 9 BUN 17 Creatinine 1.4 H Creat Clearance w eGFR 55.05 Random Glucose 83 Calcium 8.2 L Total Bilirubin 0.5 AST 24 ALT 29 Alkaline Phosphatase 102 Total Protein 7.4 Albumin 3.9 01/16/18 20:10 RBC 4.90 MCV 86.5 MCHC 35.9 RDW 13.0 MPV 9.4 Neutrophils % 54.1 D Lymphocytes % 34.9 D Monocytes % 8.3 Eosinophils % 1.5 D Basophils % 1.2 - RADIOLOGY Radiology Studies Ordered: Category Date Time Status CHEST PA & LAT [RAD] Stat Radiology 01/16/18 20:00 Ordered - Medications Given in the ED: ED Medications Discontinued Medications Generic Name Dose Route Start Last Admin Trade Name Freq PRN Reason Stop Dose Admin Amlodipine Besylate 2.5 mg 01/16/18 20:00 01/16/18 20:10 Norvasc - PO 01/16/18 20:01 2.5 mg ONCE ONE Administration Amlodipine Besylate 2.5 mg 01/16/18 20:31 01/16/18 20:45 Norvasc - PO 01/16/18 20:32 2.5 mg ONCE ONE Administration Hydrochlorothiazide 12.5 mg 01/16/18 20:01 01/16/18 20:10 Hctz - PO 01/16/18 20:02 12.5 mg ONCE ONE Administration Hydrochlorothiazide 12.5 mg 01/16/18 20:31 01/16/18 20:45 Hctz - PO 01/16/18 20:32 12.5 mg ONCE ONE Administration Medical Decision Making - Medical Decision Making 01/16/18 22:25 The patient is a 42M with a PMH of HTN who presents to the ER with elevated BP, 225/100's. Given home dose of meds x 2 and BP brought down to 170's/90's. Will d /c home with prescriptions and PCP f/u. *DC/Admit/Observation/Transfer Diagnosis at time of Disposition: High blood pressure Qualifiers: Hypertension type: unspecified Qualified Code(s): I10 - Essential (primary) hypertension - Discharge Dispostion Disposition: HOME Condition at time of disposition: Stable Decision to Admit order: No - Prescriptions Prescriptions: Amlodipine Besylate [Norvasc -] 5 mg PO DAILY #30 tablet Hydrochlorothiazide [Hctz -] 12.5 mg PO DAILY #30 cap - Referrals - Patient Instructions Printed Discharge Instructions: DI for High Blood Pressure Additional Instructions: You were seen for high blood pressure. 2 prescriptions were sent to your pharmacy. Please take these prescriptions. Check [employer] for prescription prices. The amlodipine is $4 from [employer] and so is the HCTZ ( hydrochlorothiazide). Please follow up with your primary care physician in 2-3 days. Please return to the ER if you have any signs or symptoms of chest pain, shortness of breath, uncontrollable fever, chills, nausea, vomiting, numbness, tingling, or weakness in any part of your body, changes in vision, or slurred speech. Please take your medications as prescribed. Please return to the ER if symptoms persist, worsen, or new symptoms arise. - Post Discharge Activity
[2018-01-16 22:12] VITALS: BP 187/110; PULSE 63
--- NOTE | 2018-01-17 11:45 | EKG ---
Test Reason : Blood Pressure : / mmHG Vent. Rate : 061 BPM Atrial Rate : 061 BPM P-R Int : 204 ms QRS Dur : 106 ms QT Int : 394 ms P-R-T Axes : 038 027 019 degrees QTc Int : 396 ms NORMAL SINUS RHYTHM INFERIOR INFARCT , AGE UNDETERMINED CANNOT RULE OUT ANTERIOR INFARCT , AGE UNDETERMINED ABNORMAL ECG WHEN COMPARED WITH ECG OF 28-FEB-2012 21:57, INFERIOR INFARCT IS NOW PRESENT Confirmed by ZURI AGUERO, DEMETRI ([id number]) on 01/17/2018 11:45:07 AM Referred By: Confirmed By:DEMETRI KEATING MD
== END 2018-01-16 22:21 | disposition home or self-care (01) ==
LOC: JER 19:34
DX: I10 Essential (primary) hypertension (principal); Z91.14 Patient's other noncompliance with medication regimen
CPT/HCPCS: 36415; 80053; 85025; 93005; 93010; 99282-25

== ENCOUNTER 2018-04-12 06:03 | Emergency (ER) | payer OTHER ==
--- NOTE | 2018-04-12 06:11 | PDOC ---
History of Present Illness - General Stated Complaint: POSSIBLE KIDNEY STONES History Source: Patient Exam Limitations: No Limitations - History of Present Illness Travel History: No Initial Comments: 04/12/18 06:41 Best Contact: PCP:Dr. Palafox Pmhx:2017: Renal colic Pshx:2016: RIght scaphoid fx repair Allergies: NKDA FH:0 Social Hx: Cigarettes/ 0 Alcohol/ social Drugs/0 42-year-old male with a history of renal colic presents to the emergency department complaining of right-sided flank pain 7 hours. Patient states he was getting ready to go to sleep late last evening when he started feeling a sharp right-sided flank pain which radiates to the right groin with nausea/ vomiting times one episode of nonbilious/nonbloody but denies fever/chills, chest pain, shortness of breath, back pains, urinary symptoms: Frequency/urgency /hesitancy, hematuria. Patient states he's had a total of 3 renal colic episodes since 2016. Patient says he have one episode in 2016 and 2 episodes last year/2017. Patient states symptoms today feels like his previous renal colic. Patient was able to pass his previous kidney stones with pain but no difficulty. Past History - Past Medical History Allergies/Adverse Reactions: Allergies Allergy/AdvReac Type Severity Reaction Status Date / Time No Known Allergies Allergy Verified 04/12/18 06:17 Home Medications: Ambulatory Orders Hydrochlorothiazide [Hctz -] 12.5 mg PO DAILY 05/09/14 Amlodipine Besylate [Norvasc -] 5 mg PO DAILY #30 tablet 01/16/18 COPD: No HTN: Yes Kidney Stones: Yes - Immunization History Immunization Up to Date: No - Suicide/Smoking/Psychosocial Hx Smoking Status: No Smoking History: Never smoked Have you smoked in the past 12 months: No Number of Cigarettes Smoked Daily: 0 Hx Alcohol Use: No Drug/Substance Use Hx: No Substance Use Type: None Abd/GI Specific PMHX - Complaint Specific PMHX Colitis: No Diverticulitis: No Gall Bladder Disease: No GERD: No Hepatitis: No Irritable Bowel Synd (IBS): No Pancreatitis: No GI Ulcer Disease: No Review of Systems - Review of Systems Able to Perform ROS?: Yes Comments:: 04/12/18 06:40 CONSTITUTIONAL: Absent: fever, chills, diaphoresis, generalized weakness, malaise, loss of appetite HEENT: Absent: rhinorrhea, nasal congestion, throat pain, throat swelling, difficulty swallowing, mouth swelling, ear pain, eye pain, visual Changes CARDIOVASCULAR: Absent: chest pain, loss of consciousness, palpitations, irregular heart rate, peripheral edema RESPIRATORY: Absent: cough, shortness of breath, dyspnea with exertion, orthopnea, wheezing, stridor, hemoptysis GASTROINTESTINAL: Absent: abdominal pain, abdominal distension, nausea, vomiting, diarrhea, constipation, melena, hematochezia GENITOURINARY: +Right sided flank pain Absent: dysuria, frequency, urgency, hesitancy, hematuria,genital pain MUSCULOSKELETAL: Absent: myalgia, arthralgia, joint swelling SKIN: Absent: rash, itching, pallor HEMATOLOGIC/IMMUNOLOGIC: Absent: easy bleeding, easy bruising, lymphadenopathy, frequent infections ENDOCRINE: Absent: unexplained weight gain, unexplained weight loss, heat intolerance, cold intolerance NEUROLOGIC: Absent: headache, focal weakness or paresthesias, dizziness, unsteady gait, seizure, mental status changes, bladder or bowel incontinence PSYCHIATRIC: Absent: anxiety, depression, suicidal or homicidal ideation, hallucinations. Is the patient limited [place] proficient: No *Physical Exam - Physical Exam Comments: 04/12/18 06:40 GENERAL: Well developed, well nourished. Awake and alert. No acute distress. HEENT: Normocephalic, atraumatic. PERRLA, EOMI. No conjunctival pallor. Sclera are non- icteric. Moist mucous membranes. Oropharynx is clear. NECK: Supple. Full ROM. No JVD. Carotid pulses 2+ and symmetric, without bruits. No thyromegaly. No lymphadenopathy. CARDIOVASCULAR: Regular rate and rhythm. No murmurs, rubs, or gallops. Distal pulses are 2+ and symmetric. PULMONARY: No evidence of respiratory distress. Lungs clear to auscultation bilaterally. No wheezing, rales or rhonchi. ABDOMINAL: Soft. Non-tender. Non-distended. No rebound or guarding. No organomegaly. Normoactive bowel sounds. MUSCULOSKELETAL +Right sided flank pain on percussion Normal range of motion at all joints. No bony deformities or tenderness. EXTREMITIES: No cyanosis. No clubbing. No edema. No calf tenderness. SKIN: Warm and dry. Normal capillary refill. No rashes. No jaundice. NEUROLOGICAL: Alert, awake, appropriate. Cranial nerves 2-12 intact. No deficits to light touch and temperature in face, upper extremities and lower extremities. No motor deficits in the in face, upper extremities and lower extremities. Normoreflexic in the upper and lower extremities. Normal speech. Toes are down- going bilaterally. Gait is normal without ataxia. PSYCHIATRIC: Cooperative. Good eye contact. Appropriate mood and affect. ED Treatment Course - LABORATORY CBC & Chemistry Diagram: 04/12/18 06:27 04/12/18 06:27 Progress Note - Progress Note Progress Note: 0700hrs: Signed out to IAM Bruce *DC/Admit/Observation/Transfer - Discharge Dispostion Condition at time of disposition: Fair - Referrals Referrals: Guillaume Paul MD [Primary Care Provider] - - Patient Instructions - Post Discharge Activity
[2018-04-12 06:18] VITALS: BMI 31.3
[2018-04-12] MEDS ORDERED: KETOROLAC TROMETHAMINE 30 MG/1 ML VIAL IVPUSH ONE (06:19)
[2018-04-12] MEDS ORDERED: SODIUM CHLORIDE 1,000 ML IV STA (06:19)
--- NOTE | 2018-04-12 06:23 | PDOC ---
*Physical Exam - Vital Signs Last Vital Signs Temp Pulse Resp BP Pulse Ox 98.7 F 89 20 141/73 98 04/12/18 06:05 04/12/18 06:05 04/12/18 06:05 04/12/18 06:05 04/12/18 06:05 ED Treatment Course - LABORATORY CBC & Chemistry Diagram: 04/12/18 06:27 04/12/18 06:27 - RADIOLOGY Radiology Studies Ordered: Category Date Time Status SPIRAL- RENAL-STONE CT [CT] Stat CT Scan 04/12/18 06:20 Ordered Medical Decision Making - Medical Decision Making 04/12/18 06:22 Mr Garcia is a 42 yo M h/o HTN, obstructive uropathy who presents to the ER with a complaint of right flank pain which began at midnight No fevers or chills Pt pain is 10/10 Pt seen by Midlevel Provider under my direct supervision Pt interviewed and examined Ancillary studies - pending I agree with plan as outlined by Midlevel Provider *DC/Admit/Observation/Transfer Diagnosis at time of Disposition: Kidney stone - Discharge Dispostion Disposition: HOME Condition at time of disposition: Improved - Prescriptions Prescriptions: Oxycodone HCl/Acetaminophen [Percocet 5-325 mg Tablet] 1 - 2 tab PO Q6H PRN #12 tab MDD 4 PRN Reason: Pain Tamsulosin HCl [Flomax] 0.4 mg PO DAILY #7 cap.er.24h - Referrals Referrals: Salvatore Nielesn MD [Staff Physician] - Guillaume Paul MD [Primary Care Provider] - - Patient Instructions Printed Discharge Instructions: DI for Kidney Stones Additional Instructions: Please strain your urine. Please drink at least 2 liters of water daily Follow up with urology. EAt potassium enriched foods since you are on HCTZ. Return if you develop inability to urinate, sever abd pain, fever, or vomiting - Post Discharge Activity
[2018-04-12 06:24] LABS: URINE APPEARANCE CLEAR; URINE BILIRUBIN NEGATIVE (<2.0 mg/dL); URINE COLOR COLORLESS; URINE GLUCOSE (UA) NEGATIVE (NEGATIVE); URINE KETONE NEGATIVE (NEGATIVE); URINE LEUK ESTERASE NEGATIVE (NEGATIVE); URINE NITRITE NEGATIVE (NEGATIVE); URINE PROTEIN NEGATIVE (NEGATIVE); URINE UROBILINOGEN NEGATIVE mg/dL (0.2-1.0)
[2018-04-12 06:41] LABS: BASO % 0.8 % (0-2.0); EOS % 0.9 % (0-4.5); HEMATOCRIT 43.6 % (35.4-49); HEMOGLOBIN 15.5 GM/dL (11.7-16.9); LYMPH % 31.8 % (8-40); MCH 30.9 pg (25.7-33.7); MCHC 35.5 g/dl (32.0-35.9); MEAN CELL VOLUME 86.9 fl (80-96); MEAN PLT VOLUME 8.5 fl (7.5-11.1); MONO % 8.5 % (3.8-10.2); PLATELET COUNT 278 K/MM3 (134-434); RBC 5.01 M/mm3 (4.00-5.60); RDW 12.7 % (11.9-15.9); WHITE BLOOD COUNT 9.2 K/mm3 (4.0-10.0)
[2018-04-12 07:08] LABS: ALBUMIN 3.8 g/dl (3.4-5.0); ALK PHOS 92 U/L (45-117); ANION GAP 9 MMOL/L (8-16); BILIRUBIN,TOTAL 0.3 mg/dL (0.2-1); BLOOD UREA NITROGEN 20 mg/dL (7-18); CALCIUM 9.3 mg/dL (8.5-10.1); CHLORIDE 99 mmol/L (98-107); CO2 27 mmol/L (21-32); CREATININE 1.3 mg/dL (0.55-1.3); GLUCOSE,RANDOM 138 mg/dL (74-106); SGOT/AST 17 U/L (15-37); SGPT/ALT 29 U/L (13-61); SODIUM 136 mmol/L (136-145); TOT PROT 7.5 g/dl (6.4-8.2)
--- NOTE | 2018-04-12 09:31 | PDOC ---
*Physical Exam - Vital Signs Last Vital Signs Temp Pulse Resp BP Pulse Ox 98.7 F 89 20 141/73 98 04/12/18 06:05 04/12/18 06:05 04/12/18 06:05 04/12/18 06:05 04/12/18 06:05 ED Treatment Course - LABORATORY CBC & Chemistry Diagram: 04/12/18 06:27 04/12/18 06:27 - ADDITIONAL ORDERS Additional order review: Laboratory Results 04/12/18 04/12/18 06:27 06:05 Sodium 136 Potassium 3.0 L Chloride 99 Carbon Dioxide 27 Anion Gap 9 BUN 20 H Creatinine 1.3 Creat Clearance w eGFR 59.97 Random Glucose 138 H Calcium 9.3 Total Bilirubin 0.3 AST 17 ALT 29 Alkaline Phosphatase 92 Total Protein 7.5 Albumin 3.8 Urine Color Colorless Urine Appearance Clear Urine pH 8.0 Ur Specific [place] 1.006 L Urine Protein Negative Urine Glucose (UA) Negative Urine Ketones Negative Urine Blood Negative Urine Nitrite Negative Urine Bilirubin Negative Urine Urobilinogen Negative Ur Leukocyte Esterase Negative 04/12/18 06:27 RBC 5.01 MCV 86.9 MCHC 35.5 RDW 12.7 MPV 8.5 Neutrophils % 58.0 Lymphocytes % 31.8 Monocytes % 8.5 Eosinophils % 0.9 Basophils % 0.8 - Medications Given in the ED: ED Medications Discontinued Medications Generic Name Dose Route Start Last Admin Trade Name Freq PRN Reason Stop Dose Admin Ketorolac Tromethamine 30 mg 04/12/18 06:19 04/12/18 06:29 Toradol Injection - IVPUSH 04/12/18 06:20 30 mg ONCE ONE Administration Medical Decision Making - Medical Decision Making 04/12/18 07:52 Patient received in signout from BUCK hutson. Patient pending abdominal CT to rule out renal colic *DC/Admit/Observation/Transfer Diagnosis at time of Disposition: Kidney stone - Discharge Dispostion Disposition: HOME Condition at time of disposition: Improved - Prescriptions Prescriptions: Oxycodone HCl/Acetaminophen [Percocet 5-325 mg Tablet] 1 - 2 tab PO Q6H PRN #12 tab MDD 4 PRN Reason: Pain Tamsulosin HCl [Flomax] 0.4 mg PO DAILY #7 cap.er.24h - Referrals Referrals: Guillaume Paul MD [Primary Care Provider] - Salvatore Nielsen MD [Staff Physician] - - Patient Instructions Printed Discharge Instructions: DI for Kidney Stones Additional Instructions: Please strain your urine. Please drink at least 2 liters of water daily Follow up with urology. EAt potassium enriched foods since you are on HCTZ. Return if you develop inability to urinate, sever abd pain, fever, or vomiting - Post Discharge Activity
[2018-04-12] MEDS ORDERED: POTASSIUM CHLORIDE TABS 20 MEQ TABLET.ER (FP) PO ONE ×2 (09:34→09:40)
[2018-04-12 09:48] VITALS: BP 135/69; PULSE 75; TEMP 98.4
--- NOTE | 2018-04-15 16:13 | EKG ---
Test Reason : Blood Pressure : / mmHG Vent. Rate : 069 BPM Atrial Rate : 069 BPM P-R Int : 210 ms QRS Dur : 108 ms QT Int : 380 ms P-R-T Axes : 034 030 009 degrees QTc Int : 407 ms SINUS RHYTHM WITH 1ST DEGREE A-V BLOCK INFERIOR INFARCT (CITED ON OR BEFORE 16-JAN-2018) ABNORMAL ECG WHEN COMPARED WITH ECG OF 16-JAN-2018 22:06, NO SIGNIFICANT CHANGE WAS FOUND Confirmed by MD Jagdish, Joe ([id number]) on 04/15/2018 4:12:57 PM Referred By: Confirmed By:Joe Dubon MD
== END 2018-04-12 09:48 | disposition home or self-care (01) ==
LOC: JER 06:03
PROC: 3E0337Z Introduction of Electrolytic and Water Balance Substance into Peripheral Vein, Percutaneous Approach (ICD-10-PCS; principal; 2018-04-12)
DX: N13.2 Hydronephrosis with renal and ureteral calculous obstruction (principal); Z87.442 Personal history of urinary calculi; I10 Essential (primary) hypertension
CPT/HCPCS: 36415; 74176-TC; 80053; 81003; 85025; 93005; 93010; 96360; 96361; 99282-25; J7030

== ENCOUNTER 2019-01-17 06:51 | Emergency (ER) | payer SELFPAY ==
[2019-01-17 07:10] VITALS: TEMP 97.8; BMI 32.1
--- NOTE | 2019-01-17 07:58 | PDOC ---
History of Present Illness - General Chief Complaint: Blood Pressure Problem Stated Complaint: HEADACHE Time Seen by Provider: 01/17/19 07:27 History Source: Patient Exam Limitations: No Limitations - History of Present Illness Initial Comments: 01/17/19 07:53 Rock Garcia is a 43M with PMH HTN on amlodipine and HCTZ presenting with 2 weeks of CHOE. Patient was going about his day 2 weeks ago when he began having a slow onset headache, described as a pulsating sensation in the back of his head that radiates forward to the front. Associated with neck pain with lateral movement of the neck, denies changes to vision, N/V, loss of appetite. Denies numbness/ tingling, weakness, syncope. Denies chest pain, palpitations, abd pain, LE edema , urinary sx, C/D. Complains of SOB 2/2 chronic septal deviation and congestion , denies fever/chills, cough. Has hx HTN, PMD [place], on 5mg amlodipine and 25mg HCTZ, takes regularly, last this AM. Has been having CHOE despite taking anti-HTN medications. NKDA Denies alcohol/tobacco/drug use. Past History - Past Medical History Allergies/Adverse Reactions: Allergies Allergy/AdvReac Type Severity Reaction Status Date / Time No Known Allergies Allergy Verified 01/17/19 07:07 Home Medications: Ambulatory Orders Hydrochlorothiazide [Hctz -] 25 mg PO DAILY 05/09/14 Amlodipine Besylate [Norvasc -] 5 mg PO DAILY #30 tablet 01/16/18 COPD: No HTN: Yes Kidney Stones: Yes - Immunization History Td Vaccination: Yes TDAP Vaccination: Yes Immunization Up to Date: No - Psycho Social/Smoking Cessation Hx Smoking Status: No Smoking History: Never smoked Have you smoked in the past 12 months: No Number of Cigarettes Smoked Daily: 0 Hx Alcohol Use: No Drug/Substance Use Hx: No Substance Use Type: None Review of Systems - Review of Systems Able to Perform ROS?: Yes Constitutional: No: Symptoms Reported HEENTM: Yes: Difficulty Swallowing. No: Eye Pain, Blurred Vision, Tearing, Nose Bleeding, Hearing Loss Respiratory: Yes: Shortness of Breath. No: Cough Cardiac (ROS): No: Chest Pain, Edema, Irregular Heart Rate, Lightheadedness, Palpitations, Chest Tightness ABD/GI: No: Symptoms Reported : No: Symptoms Reported Musculoskeletal: Yes: Neck Pain Integumentary: No: Symptoms Reported Neurological: Yes: Headache. No: Numbness, Paresthesia, Seizure, Tingling, Unsteady Gait Endocrine: No: Symptoms Reported Hematologic/Lymphatic: No: Symptoms Reported All Other Systems: Reviewed and Negative *Physical Exam - Vital Signs Last Vital Signs Temp Pulse Resp BP Pulse Ox 97.8 F 68 18 175/108 H 99 01/17/19 07:08 01/17/19 07:08 01/17/19 07:08 01/17/19 07:08 01/17/19 07:08 - Physical Exam General Appearance: Yes: Nourished, Appropriately Dressed. No: Apparent Distress HEENT: positive: EOMI, RICH, Normal Voice, Symmetrical, Pharynx Normal, Hearing Grossly Normal. negative: Scleral Icterus (R), Scleral Icterus (L), Pharyngeal Erythema, Tonsillar Exudate, Tonsillar Erythema Neck: positive: Tender (tender posteriorly in upper neck by occipital region, non-tender anteriorly), Trachea midline, Normal Thyroid, Supple. negative: Decreased range of motion, Lymphadenopathy (R), Lymphadenopathy (L), Rigidity Respiratory/Chest: positive: Lungs Clear, Normal Breath Sounds. negative: Chest Tender, Respiratory Distress, Accessory Muscle Use, Labored Respiration, Crackles, Rales, Rhonchi, Stridor, Wheezing Cardiovascular: positive: Regular Rhythm, Regular Rate. negative: Edema, Murmur Gastrointestinal/Abdominal: positive: Normal Bowel Sounds, Flat, Soft. negative : Tender, Organomegaly, Pulsatile Mass, Guarding, Rebound Musculoskeletal: positive: Normal Inspection. negative: CVA Tenderness, Vertebral Tenderness Extremity: positive: Normal Capillary Refill, Normal Inspection, Normal Range of Motion. negative: Tender Integumentary: positive: Normal Color, Dry, Warm Neurologic: positive: field crew chief II-XII NML intact, Fully Oriented, Alert, Normal Mood/ Affect, Normal Response, Motor Strength 06/15 ED Treatment Course - LABORATORY CBC & Chemistry Diagram: 01/17/19 08:20 01/17/19 08:20 Medical Decision Making - Medical Decision Making 01/17/19 07:53 Rock Garcia is a 43M with PMH HTN on amlodipine and HCTZ presenting with 2 weeks of CHOE. Presentation is consistent with hypertensive urgency vs. neurological CHOE including migraine vs. mass vs. bleed vs. pseudotumor cerebri. Had no neuro deficits. Repeat BP in L arm at bedside 155/111, R arm at 169/108 ECG CXR CBC CMP CP UA CT head to r/o intracranial lesions as cause of CHOE ECG shows sinus rhythm with 1st degree AV block (N[place] 212), HR 62, QRS 98, QTc 420 , no evidence of ischemic changes or TWI Labs notable for: - K 3.2 - remaining CMP and CBC WNL - UA unremarkable - trop <0.02 - CK 344 CT head shows no acute intracranial abnormality 01/17/19 13:43 Patient re-evaluated, still has mild headache but feels okay. Repeat BP 157/102 , nothing PO today, took medications this morning. Will replete potassium PO, then patient stable to be discharged home with PMD f/ u. Discharge - Discharge Information Problems reviewed: Yes Clinical Impression/Diagnosis: High blood pressure Qualifiers: Hypertension type: essential hypertension Qualified Code(s): I10 - Essential ( primary) hypertension Headache Qualifiers: Headache type: unspecified Headache chronicity pattern: acute headache Intractability: not intractable Qualified Code(s): R51 - Headache Condition: Stable Disposition: HOME - Admission No - Follow up/Referral Referrals: Guillaume Paul MD [Primary Care Provider] - - Patient Discharge Instructions Additional Instructions: Today you were evaluated for a headache. Your blood labs do not show any evidence of electrolyte abnormalities, anemia, or infection. Your CT scan does not show evidence of any tumors or bleeding as the cause of your headache. Your potassium was low, so we gave you some more potassium to take. Your headache is likely caused by high blood pressure, as your pressure is high despite taking medications. At home, please continue to take your medications every day. Please follow-up with Dr. Mireles for further tailoring of your blood pressure medications. For your headache, feel free to take Tylenol or ibuprofen as needed as instructed on the bottle. If you experience worsening headache, changes to your vision, dizziness, lose consciousness, chest pain, trouble breathing, or have any other new or concerning symptoms, please return to the emergency room. - Post Discharge Activity
[2019-01-17] MEDS ORDERED: ACETAMINOPHEN 1000 MG/100 ML VIAL (NON FORMULARY) IVPB ONE (08:08)
[2019-01-17] MEDS ORDERED: ACETAMINOPHEN INJECTION 100 ML IVPB ONE (08:15)
[2019-01-17 08:36] LABS: BASO % 2.7 % (0-2.0); EOS % 2.2 % (0-4.5); HEMATOCRIT 47.3 % (35.4-49); HEMOGLOBIN 16.5 GM/dL (11.7-16.9); LYMPH % 30.5 % (8-40); MCH 30.2 pg (25.7-33.7); MCHC 34.9 g/dl (32.0-35.9); MEAN CELL VOLUME 86.6 fl (80-96); MONO % 8.5 % (3.8-10.2); NEUT % 56.1 % (42.8-82.8); PLATELET COUNT 254 K/MM3 (134-434); RBC 5.46 M/mm3 (4.00-5.60); RDW 12.6 % (11.9-15.9); WHITE BLOOD COUNT 6.9 K/mm3 (4.0-10.0)
[2019-01-17 09:04] LABS: URINE APPEARANCE CLEAR; URINE BILIRUBIN NEGATIVE (NEGATIVE); URINE COLOR YELLOW; URINE GLUCOSE (UA) NEGATIVE (NEGATIVE); URINE KETONE NEGATIVE (NEGATIVE); URINE LEUK ESTERASE NEGATIVE (NEGATIVE); URINE NITRITE NEGATIVE (NEGATIVE); URINE PROTEIN NEGATIVE (NEGATIVE); URINE UROBILINOGEN 0.2 mg/dL (0.2-1.0)
[2019-01-17 09:24] LABS: ALBUMIN 3.8 g/dl (3.4-5.0); ALK PHOS 91 U/L (45-117); ANION GAP 8 MMOL/L (8-16); BILIRUBIN,TOTAL 0.7 mg/dL (0.2-1); BLOOD UREA NITROGEN 19.6 mg/dL (7-18); CALCIUM 8.7 mg/dL (8.5-10.1); CHLORIDE 103 mmol/L (98-107); CO2 28 mmol/L (21-32); CREATININE 1.1 mg/dL (0.55-1.3); GLUCOSE,RANDOM 95 mg/dL (74-106); POTASSIUM 3.2 mmol/L (3.5-5.1); SGOT/AST 23 U/L (15-37); SGPT/ALT 38 U/L (13-61); SODIUM 139 mmol/L (136-145); TOT PROT 7.1 g/dl (6.4-8.2)
[2019-01-17] MEDS ORDERED: POTASSIUM CHLORIDE TABS 20 MEQ TABLET.ER (FP) PO ONE ×2 (13:24→13:48)
[2019-01-17 13:51] VITALS: BP 160/88; PULSE 70
--- NOTE | 2019-01-17 23:12 | EKG ---
Test Reason : Blood Pressure : / mmHG Vent. Rate : 062 BPM Atrial Rate : 062 BPM P-R Int : 212 ms QRS Dur : 098 ms QT Int : 414 ms P-R-T Axes : 043 026 027 degrees QTc Int : 420 ms SINUS RHYTHM WITH 1ST DEGREE A-V BLOCK INFERIOR INFARCT (CITED ON OR BEFORE 16-JAN-2018) ABNORMAL ECG WHEN COMPARED WITH ECG OF 12-APR-2018 07:31, NO SIGNIFICANT CHANGE WAS FOUND Confirmed by MATTHEW MITCHELL MD ([id number]) on 01/17/2019 11:11:50 PM Referred By: Confirmed By:MATTHEW MITCHELL MD
--- NOTE | 2019-01-18 22:27 | PDOC ---
Documentation entered by Kacey Bennett SCRIBE, acting as scribe for Diego Urbina MD. Diego Urbina MD: This documentation has been prepared by the Sabrina carnes Brenda, SCRIBE, under my direction and personally reviewed by me in its entirety. I confirm that the documentation accurately reflects all work, treatment, procedures, and medical decision making performed by me. Attending Attestation - Resident Resident Name: Darwin Miguel - ED Attending Attestation I have performed the following: I have examined & evaluated the patient, The case was reviewed & discussed with the resident, I agree w/resident's findings & plan, Exceptions are as noted - HPI HPI: 01/17/19 10:16 The patient is a 43 year old male, with a significant PMH of HTN (taking amlodipine) and HCTZ, who presents to the emergency department with 2 weeks of a slow onset headache. He notes that the pain feels like a pulsing sensation located on the back of his head, which radiates to the front. Patient also reports associated neck pain when turning sideways. The patient denies chest pain, palpitations and lower extremity edema. Denies fever, chills, nausea, vomiting, diarrhea and constipation.Denies dysuria, frequency, urgency and hematuria. Allergies: NKA Past surgical history: Social history: Denies alcohol use, tobacco or drug use. PCP: [facility] - Physicial Exam PE: 01/17/19 13:10 Vitals: Triage Vital signs reviewed General Appearance: No acute distress, well nourished well developed, Head: Atraumatic, Eyes: Pupils equal reactive round, extraocular movement intact Cardiac: Regular rate and rhythym, no murmurs, no rubs, no gallops, Lungs: Clear to auscultation bilateral, good air movement bilaterally, Abdomen: Soft, non distended, normal bowel sounds, non tender to palpation Extremities: Full range of motion to all extremities, no cyanosis, clubbing, or edema Skin: Warm and dry, no rashes or lesions, no rash, no petechiae Neuro: AOX3; cranial Nerves 2-12 grossly intact, strength intact to all extremities, sensation intact to all extremities, gait normal Psych: Normal mood, normal affect - Medical Decision Making 43 years old with hypertension presents to the emergency department 2-week history of headache Normal neurologic exam head CT within normal limits patient's home blood pressure medications given blood pressure improved however still slightly elevated discussed with patient the importance of following up with his PCP for further blood pressure checks Findings, the need for follow-up and strict return instructions discussed with patient.
== END 2019-01-17 13:52 | disposition home or self-care (01) ==
LOC: JER 06:51
PROC: 3E033NZ Introduction of Analgesics, Hypnotics, Sedatives into Peripheral Vein, Percutaneous Approach (ICD-10-PCS; principal; 2019-01-17)
DX: R51 Headache (principal); I10 Essential (primary) hypertension; N20.0 Calculus of kidney
CPT/HCPCS: 36415; 70450-TC; 71046-TC-FY; 80053; 81003; 82550; 82553; 84484; 85025; 93005; 93010; 99284-25; J0131